=== PATIENT | male | born 1975 | race Asian ===

== ENCOUNTER → 2018-02-19 | Outpatient (CLI) | payer OTHER ==
--- NOTE | 2018-02-19 16:41 | KCIC ---
PROCEDURE: CHEST AP ONLY CLINICAL INDICATION: TB exposure COMPARISON: None FINDINGS: No pneumothorax identified. Cardiac and mediastinal contours unremarkable. No pulmonary consolidation or acute airspace disease. No acute osseous abnormalities identified. IMPRESSION: No pulmonary consolidation or acute airspace disease. Electronically signed by: Mariano Ashraf DO (02/19/2018 4:37 PM) [facility]
== END | disposition home or self-care (01) ==
LOC: KCIC 09:56
PROVIDERS: ATTEND Family Medicine
DX: Z20.1 Contact with and (suspected) exposure to tuberculosis (principal)
CPT/HCPCS: 71045